=== PATIENT | female | born 1990 | race Caucasian/White ===

== ENCOUNTER 2018-06-20 11:14 | Emergency (ER) | payer OTHER ==
[~2018-06-20] VITALS: Ht 160 cm; Wt 112.0 kg
[2018-06-20 12:16] LABS: BASOPHIL % 0.5 % (0-2); PLATELET COUNT 253 x10^3mcL (130-400); RED CELL DISTRIBUTION WIDTH 13.9 % (11.5-14.5)
[2018-06-20 12:21] LABS: CALCIUM 8.7 mg/dL (8.5-10.1); CARBON DIOXIDE 26.8 mmol/L (21-32); CHLORIDE SERUM 102 mmol/L (98-107); CREATININE SERUM 0.6 mg/dL (0.6-1.0); GFR1 > 60 mL/min; GLUCOSE SERUM 104 mg/dL (74-106); POTASSIUM SERUM 3.4 mmol/L (3.5-5.1); SODIUM SERUM 134 mmol/L (136-145)
[2018-06-20 12:31] LABS: ALKALINE PHOSPHATASE 92 U/L (46-116); ALT/SGPT 118 U/L (14-59); AST/SGOT 54 U/L (15-37); BILIRUBIN TOTAL 0.67 mg/dL (0.20-1.00); T4(THYROXINE) 11.7 ug/dL (4.7-13.3)
[2018-06-20 12:32] LABS: TOTAL PROTEIN, SERUM 8.3 g/dL (6.4-8.2)
[2018-06-20 13:57] LABS: AMPHETAMINE QUAL UR NONE DETECTED (See below)
[2018-06-20 14:46] VITALS: BP 157/92
== END 2018-06-20 14:46 | disposition home or self-care (01) ==
LOC: ED 11:14
PROVIDERS: Emergency Medicine
DX: F41.9 Anxiety disorder, unspecified (principal); I16.0 Hypertensive urgency; E11.9 Type 2 diabetes mellitus without complications
CPT/HCPCS: 36600; J0360; J2060; Q0092

== ENCOUNTER 2018-11-12 12:45 | Emergency (ER) | payer OTHER ==
[~2018-11-12] VITALS: Ht 160 cm; Wt 107.0 kg
[2018-11-12 12:54] VITALS: BP 166/108; Ht 160 cm; Wt 107.0 kg
== END 2018-11-12 14:27 | disposition home or self-care (01) ==
LOC: ED 12:45
DX: R20.0 Anesthesia of skin (principal); I10 Essential (primary) hypertension; Z79.899 Other long term (current) drug therapy